=== PATIENT | female | born 1975 | race Caucasian/White ===

== ENCOUNTER 2017-12-31 16:16 | Emergency (ER) | payer MEDICAID ==
[~2017-12-31] VITALS: Ht 162.6 cm; Wt 127.0 kg
[2017-12-31 16:21] VITALS: BP_SYST 151
[2017-12-31] MEDS ORDERED: ONDANSETRON HCL 4 MG/2 ML VIAL IVP ONE (17:00)
[2017-12-31] MEDS ORDERED: DIPHENHYDRAMINE INJ 50 MG/ML VIAL IVP ONE ×2 (17:15→18:00)
[2017-12-31] MEDS ORDERED: MORPHINE 4 MG/ML INJ. SYRINGE IVP ONE (17:45)
[2017-12-31 19:16] VITALS: BP_SYST 143
== END 2017-12-31 19:15 | disposition home or self-care (01) ==
LOC: SED 16:16
DX: G43.909 Migraine, unspecified, not intractable, without status migrainosus (principal); F41.9 Anxiety disorder, unspecified; Z90.11 Acquired absence of right breast and nipple
CPT/HCPCS: 96374; 96375; 99284; J1200; J2270; J2405

== ENCOUNTER 2018-03-26 15:43 | Emergency (ER) | payer MEDICAID ==
[~2018-03-26] VITALS: Ht 162.6 cm; Wt 122.5 kg
[2018-03-26 15:49] VITALS: BP_SYST 162
[2018-03-26] MEDS ORDERED: KETOROLAC TROMETHAMINE 30 MG VIAL IM ONE (16:15)
[2018-03-26 16:48] VITALS: BP_SYST 155
== END 2018-03-26 16:48 | disposition home or self-care (01) ==
LOC: SED 15:43
DX: S92.514A Nondisplaced fracture of proximal phalanx of right lesser toe(s), initial encounter for closed fracture (principal); G43.909 Migraine, unspecified, not intractable, without status migrainosus; F41.9 Anxiety disorder, unspecified; R03.0 Elevated blood-pressure reading, without diagnosis of hypertension; W22.8XXA Striking against or struck by other objects, initial encounter; Y93.01 Activity, walking, marching and hiking; Y92.009 Unspecified place in unspecified non-institutional (private) residence as the place of occurrence of the external cause; Y99.8 Other external cause status
CPT/HCPCS: 73660; 96372; 99284; J1885

== ENCOUNTER 2018-04-10 18:27 | Emergency (ER) | payer MEDICAID ==
[~2018-04-10] VITALS: Ht 162.6 cm; Wt 117.9 kg
[2018-04-10 18:37] VITALS: BP_SYST 148
[2018-04-10] MEDS ORDERED: BACITRACIN 1 GM OINT TP ONE ×2 (18:45→19:19)
[2018-04-10] MEDS ORDERED: LIDOCAINE 2%, 20 ML MDV INJ ONE (18:45)
[2018-04-10] MEDS ORDERED: SODIUM BICARBONATE 8.4% VIAL 50 MEQ/50 ML VIAL INJ ONE (18:45)
[2018-04-10] MEDS ORDERED: DIPH-TET-PERTUS Vaccine 0.5 ML VIAL (ADACEL) I.M. ONE (19:00)
[2018-04-10 19:37] VITALS: BP_SYST 141
== END 2018-04-10 19:37 | disposition home or self-care (01) ==
LOC: SED 18:27
DX: S61.412A Laceration without foreign body of left hand, initial encounter (principal); G43.909 Migraine, unspecified, not intractable, without status migrainosus; R03.0 Elevated blood-pressure reading, without diagnosis of hypertension; W45.8XXA Other foreign body or object entering through skin, initial encounter; Y93.89 Activity, other specified; Y92.000 Kitchen of unspecified non-institutional (private) residence as the place of occurrence of the external cause; Y99.8 Other external cause status
CPT/HCPCS: 90471; 90715; 99283; J2001

== ENCOUNTER 2018-06-25 12:58 | Emergency (ER) | payer MEDICAID ==
[~2018-06-25] VITALS: Ht 162.6 cm; Wt 122.5 kg
--- NOTE | 2018-06-25 13:00 | NUR ---
Patient to ER bed 08 to gown for evaluation. Side rails up.
--- NOTE | 2018-06-25 13:04 | NUR ---
Pt brought by self,A&Ox4, pt presents to ER with hedache,nausea, back pain and R knee pain, no active vomiting noted, skin is pink and warm, respirations even and unlabored, cap refill <3.
--- NOTE | 2018-06-25 13:05 | NUR ---
Dr Garza at bedside examining patient
[2018-06-25 13:09] VITALS: BP_SYST 147
[2018-06-25] MEDS ORDERED: PROCHLORPERAZINE EDISYLATE 10 MG/2 ML VIAL IVP ONE (14:00)
[2018-06-25] MEDS ORDERED: NACL 0.9% 1,000 ML IV ONE (14:00)
[2018-06-25] MEDS ORDERED: DIPHENHYDRAMINE INJ 50 MG/ML VIAL IVP ONE (14:00)
--- NOTE | 2018-06-25 14:00 | NUR ---
Pt ambulated to bathroom on stable condition.
[2018-06-25 14:24] LABS: BILIRUBIN,URINE NEGATIVE (NEGATIVE); BLOOD, URINE 2+ (NEGATIVE); CLARITY/URINE CLEAR (CLEAR); COLOR,URINE YELLOW (YELLOW); GLUCOSE,URINE NEGATIVE (NEGATIVE); KETONES,URINE NEGATIVE (NEGATIVE); LEUKOCYTE ESTERASE ,URINE NEGATIVE (NEGATIVE); NITRITE, URINE NEGATIVE (NEGATIVE); PROTEIN URINE NEGATIVE (NEGATIVE); UROBILINOGEN,URINE 0.2 (0.2-1.0)
[2018-06-25 14:46] LABS: BACTERIA,URINE RARE /HPF (None Seen); WBC,URINE NONE SEEN /HPF (0-3)
[2018-06-25 15:47] VITALS: BP_SYST 160
== END 2018-06-25 15:47 | disposition home or self-care (01) ==
LOC: SED 12:58
DX: R51 Headache (principal); R03.0 Elevated blood-pressure reading, without diagnosis of hypertension; F41.9 Anxiety disorder, unspecified
CPT/HCPCS: 81000; 96374; 96375; 99284; J0780; J1200; J7030

== ENCOUNTER 2018-07-10 17:00 | Emergency (ER) | payer MEDICAID ==
[~2018-07-10] VITALS: Ht 162.6 cm; Wt 117.9 kg
[2018-07-10 17:04] VITALS: BP_SYST 152
[2018-07-10] MEDS ORDERED: KETOROLAC TROMETHAMINE 60 MG/2 ML VIAL IM ONE (17:30)
[2018-07-10 17:55] LABS: BILIRUBIN,URINE NEGATIVE (NEGATIVE); BLOOD, URINE 3+ (NEGATIVE); CLARITY/URINE CLEAR (CLEAR); COLOR,URINE YELLOW (YELLOW); GLUCOSE,URINE NEGATIVE (NEGATIVE); KETONES,URINE NEGATIVE (NEGATIVE); LEUKOCYTE ESTERASE ,URINE NEGATIVE (NEGATIVE); NITRITE, URINE NEGATIVE (NEGATIVE); PH,URINE 5.5 (5.0-8.0); PROTEIN URINE NEGATIVE (NEGATIVE); UROBILINOGEN,URINE 0.2 (0.2-1.0)
[2018-07-10 19:22] VITALS: BP_SYST 152
[2018-07-10 19:31] LABS: BACTERIA,URINE FEW /HPF (None Seen); MUCUS,URINE None Seen /LPF (None Seen); WBC,URINE 0-3 /HPF (0-3); YEAST,URINE None Seen /HPF (None Seen)
== END 2018-07-10 19:22 | disposition home or self-care (01) ==
LOC: SED 17:00
DX: S63.615A Unspecified sprain of left ring finger, initial encounter (principal); S63.617A Unspecified sprain of left little finger, initial encounter; S39.012A Strain of muscle, fascia and tendon of lower back, initial encounter; N93.8 Other specified abnormal uterine and vaginal bleeding; R03.0 Elevated blood-pressure reading, without diagnosis of hypertension; G43.909 Migraine, unspecified, not intractable, without status migrainosus; F41.9 Anxiety disorder, unspecified; Z85.3 Personal history of malignant neoplasm of breast; W01.0XXA Fall on same level from slipping, tripping and stumbling without subsequent striking against object, initial encounter; Y93.89 Activity, other specified; Y92.512 Supermarket, store or market as the place of occurrence of the external cause; Y99.8 Other external cause status
CPT/HCPCS: 72100; 73140; 76830; 76857; 81000; 96372; 99285; J1885

== ENCOUNTER 2021-12-16 07:01 | Day surgery (SDC) | payer MEDICAID, SELFPAY ==
[~2021-12-16] VITALS: Ht 162.6 cm; Wt 110.7 kg
[2021-12-16 07:39] LABS: HCG,QUAL RESULT NEGATIVE (NEGATIVE)
[2021-12-16] MEDS ORDERED: SIMETHICONE 40 MG/0.6 ML ML ONE (07:41)
[2021-12-16] MEDS ORDERED: BENZOCAINE 20% 0.5mL UD SPRAY MM ONE (07:41)
[2021-12-16] MEDS: MEPERIDINE 100 MG INJ. 100 MG/ML VIAL ONE ×3 (08:59→09:09)
[2021-12-16] MEDS: MIDAZOLAM HCL 5 MG/5 ML VIAL ONE ×6 (08:59→09:35)
[2021-12-16] MEDS ORDERED: DIPHENHYDRAMINE INJ 50 MG/ML VIAL ONE (09:05)
[2021-12-16] MEDS ORDERED: MEPERIDINE 100 MG INJ. 100 MG/ML VIAL ONE (09:20)
[2021-12-16] MEDS ORDERED: ONDANSETRON HCL 4 MG/2 ML VIAL ONE (09:20)
[2021-12-16 15:38] VITALS: BP_SYST 151
== END 2021-12-16 11:00 | disposition home or self-care (01) ==
LOC: SDS 07:01 → SMU 07:03 → SDS 11:00
PROVIDERS: ATTEND Internal Medicine
DX: R19.4 Change in bowel habit (principal); K29.70 Gastritis, unspecified, without bleeding; K64.8 Other hemorrhoids; F32.A Depression, unspecified; I10 Essential (primary) hypertension; J45.909 Unspecified asthma, uncomplicated; E11.9 Type 2 diabetes mellitus without complications; Z79.899 Other long term (current) drug therapy; Z79.84 Long term (current) use of oral hypoglycemic drugs; Z20.822 Contact with and (suspected) exposure to COVID-19
CPT/HCPCS: 36415; 43239; 45378; 82962; 84703; 87426; 88305; 88312; 88313; 99152; 99153; G0378; J1200; J2175; J2250; J2405; U0003

== ENCOUNTER 2024-06-06 18:29 | Emergency (ER) | payer OTHER, MEDICAID ==
[~2024-06-06] VITALS: Ht 170.2 cm; Wt 99.8 kg
[2024-06-06 19:11] VITALS: BP_SYST 133; PULSE 105; RESP 18; TEMP 97.6; O2SAT 98
[2024-06-06] MEDS: IBUPROFEN 600 MG TABLET PO ONE (20:12)
[2024-06-06] MEDS ORDERED: NAPR-1172 PO (20:20)
[2024-06-06 20:35] VITALS: BP_SYST 121; PULSE 90; RESP 17; TEMP 97.6; O2SAT 98
== END 2024-06-06 20:35 | disposition home or self-care (01) ==
LOC: SED 18:29
DX: S13.8XXA Sprain of joints and ligaments of other parts of neck, initial encounter (principal); S33.5XXA Sprain of ligaments of lumbar spine, initial encounter; E11.9 Type 2 diabetes mellitus without complications; I10 Essential (primary) hypertension; G43.909 Migraine, unspecified, not intractable, without status migrainosus; F41.9 Anxiety disorder, unspecified; Z85.3 Personal history of malignant neoplasm of breast; Z88.6 Allergy status to analgesic agent; Z79.899 Other long term (current) drug therapy; V89.2XXA Person injured in unspecified motor-vehicle accident, traffic, initial encounter; Y93.89 Activity, other specified; Y92.89 Other specified places as the place of occurrence of the external cause; Y99.8 Other external cause status
CPT/HCPCS: 72040; 72100; 99284